=== PATIENT | female | born 1950 | race Asian ===

== ENCOUNTER 2018-01-24 10:25 | Emergency (ER) | payer OTHER, BC ==
[~2018-01-24] VITALS: Ht 157.5 cm; Wt 55.0 kg
[~2018-01-24 10:25] MED LIST: ALEN1TAB48 PO; CALC1TAB12 PO; COLC1TAB7 PO; CYCL5TAB PO
[2018-01-24] MEDS ORDERED: GADODIAMIDE PF 287 MG/ML 5 ML VIAL (for RAD MRI) IVCONTRAST ONE (10:26)
[2018-01-24 10:39] VITALS: BP 204/86; PULSE 81; RESP 17; TEMP 99; O2SAT 99
[2018-01-24 11:59] LABS: AUTOMATED NEUTROPHIL # 4.6 TH/MM3 (1.8-7.7); BASOPHIL # 0.1 TH/MM3 (0-0.2); BASOPHIL % 0.9 % (0.0-2.0); EOSINOPHIL # 0.1 TH/MM3 (0-0.4); EOSINOPHIL % 0.8 % (0.0-4.0); HEMATOCRIT 29.5 % (35.0-46.0); HEMOGLOBIN 8.7 GM/DL (11.6-15.3); LYMPH % 26.4 % (9.0-44.0); LYMPHOCYTE # 1.9 TH/MM3 (1.0-4.8); MEAN CELL VOLUME 53.3 FL (80.0-100.0); MEAN CORPUSCULAR HEMOGLOBIN 15.8 PG (27.0-34.0); MEAN PLATELET VOLUME 9.2 FL (7.0-11.0); MONO % 6.1 % (0.0-8.0); MONOCYTE # 0.4 TH/MM3 (0-0.9); NEUT % 65.8 % (16.0-70.0); PLATELET COUNT 322 TH/MM3 (150-450); RED BLOOD COUNT 5.53 MIL/MM3 (4.00-5.30); RED CELL DISTRIBUTION WIDTH 22.4 % (11.6-17.2)
[2018-01-24 12:03] LABS: MEAN CORPUSCULAR HGB CONC 29.6 % (32.0-36.0)
[2018-01-24 12:09] LABS: BICARBONATE 25.4 MEQ/L (21.0-32.0); CALCIUM 9.3 MG/DL (8.5-10.1); CREATININE 0.85 MG/DL (0.50-1.00)
[2018-01-24] MEDS ORDERED: LOSA25TA PO (12:15)
[2018-01-24] MEDS ORDERED: SODIUM CHLORIDE 0.9% FLUSH 10 ML FLUSH IVF PRN (12:15)
[2018-01-24] MEDS ORDERED: hydrALAZINE HCL 20 MG/ML VIAL IV PUSH ONE (12:15)
[2018-01-24] MEDS ORDERED: PROCHLORPERAZINE INJ 10 MG/2 ML VIAL IVP ONE (12:15)
[2018-01-24] MEDS ORDERED: ASPI-516 CHEW (12:15)
[2018-01-24] MEDS ORDERED: FOSA70TA PO (12:15)
[2018-01-24] MEDS ORDERED: COLC0.6T PO (12:16)
--- NOTE | 2018-01-24 12:39 | PD ---
HPI Chief Complaint: Neuro Symptoms/ Deficits Time Seen by Provider: 12:07 Travel History International Travel<30 days: No Contact w/Intl Traveler<30days: No Traveled to known affect area: No History of Present Illness HPI 67-year-old female with a history of gout and thalassemia presents emergency department with concerns of left nare and cheek numbness with tingling that started 1 week ago. Patient states that she saw her primary care physician for this Wednesday who diagnosed her with hypertension and prescribed losartan 25 mg. Patient states that she has never had a history of high blood pressure and is concerned about this. Says she also had an EKG while in the office and was referred to cardiology and to have an MRI done as an outpatient. 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 States that the spinning was constant and had no palliative or provocative factors, no tinnitus. Patient denies blurred vision, fever, chills , nausea, vomiting, diarrhea. Currently she states her headache is 6 out of 10 , nonradiating without palliative or provocative factors. Patient states that she took an Aleve last night and this helped relieve some of her headache. Patient denies tinnitus. She denies any cardiac or pulmonary problems. Says she has a history of gout for which he takes colchicine PRN. Also takes alendronate for osteoporosis. States compliance with medications. Denies trauma. PFSH Past Medical History Anemia: Yes (THALLISAMIA) ?: Not Menopausal: Yes Social History Alcohol Use: No Tobacco Use: No Substance Use: No Allergies-Medications (Allergen,Severity, Reaction): Coded Allergies: No Known Allergies (Verified Adverse Reaction, Unknown, 01/24/18) Reported Meds & Prescriptions Reported Meds & Active Scripts Active Calcium 500 +D (Calcium Carbonate-Cholecalciferol) 500-400 Mg-Unit Tab 1 Tab PO BID Reported Colcrys (Colchicine) 0.6 Mg Tab 0.6 Mg PO DAILY Aspirin 81 Mg Chew 81 Mg CHEW DAILY Fosamax (Alendronate Sodium) 70 Mg Tab 70 Mg PO Q7D Losartan (Losartan Potassium) 25 Mg Tab 25 Mg PO DAILY Review of Systems Except as stated in HPI: all other systems reviewed are Neg Physical Exam Narrative GENERAL: WD, WN in NAD SKIN: Focused skin assessment warm/dry. No rashes or lesions HEAD: Atraumatic. Normocephalic. EYES: Pupils equal and round. No scleral icterus. No injection or drainage. ENT: No nasal bleeding or discharge. Mucous membranes pink and moist. NECK: Trachea midline. No JVD. No lymphadenopathy, no midline tenderness CARDIOVASCULAR: Regular rate and rhythm. No murmur appreciated. RESPIRATORY: No accessory muscle use. Clear to auscultation. Breath sounds equal bilaterally. GASTROINTESTINAL: Abdomen soft, non-tender, nondistended. no CVAT MUSCULOSKELETAL: No obvious deformities. No clubbing. No cyanosis. No edema. NEUROLOGICAL: Awake and alert. No obvious cranial nerve deficits. Motor grossly within normal limits. Normal speech. No facial droop or slurred speech PSYCHIATRIC: Appropriate mood and affect; insight and judgment normal. Data Data Last Documented VS Vital Signs Date Time Temp Pulse Resp B/P (MAP) Pulse Ox O2 Delivery O2 Flow Rate FiO2 01/24/18 15:09 01/24/18 10:39 99.0 81 17 99 Orders Orders Complete Blood Count With Diff (01/24/18 10:43) Basic Metabolic Panel (Bmp) (01/24/18 10:43) Prothrombin Time / Inr (Pt) (01/24/18 12:15) Act Partial Throm Time (Ptt) (01/24/18 12:15) Prochlorperazine Inj (Compazine Inj) (01/24/18 12:15) Magnesium (Mg) (01/24/18 12:15) Urinalysis - C+S If Indicated (01/24/18 12:15) Chest, Single Ap (01/24/18 12:15) Ecg Monitoring (01/24/18 12:15) Iv Access Insert/Monitor (01/24/18 12:15) Oximetry (01/24/18 12:15) Sodium Chloride 0.9% Flush (Ns Flush) (01/24/18 12:15) Hydralazine Inj (Apresoline Inj) (01/24/18 12:15) Mri Brain W&W/O Contrast (01/24/18 ) Gadodiamide Pf Inj (Omniscan Pf Inj) (01/24/18 10:26) Electrocardiogram (01/24/18 12:13) Ed Discharge Order (01/24/18 14:56) Labs Laboratory Tests Test 01/24/18 11:15 01/24/18 12:45 01/24/18 13:00 White Blood Count 7.0 TH/MM3 Red Blood Count 5.53 MIL/MM3 Hemoglobin 8.7 GM/DL Hematocrit 29.5 % Mean Corpuscular Volume 53.3 FL Mean Corpuscular Hemoglobin 15.8 PG Mean Corpuscular Hemoglobin Concent 29.6 % Red Cell Distribution Width 22.4 % Platelet Count 322 TH/MM3 Mean Platelet Volume 9.2 FL Neutrophils (%) (Auto) 65.8 % Lymphocytes (%) (Auto) 26.4 % Monocytes (%) (Auto) 6.1 % Eosinophils (%) (Auto) 0.8 % Basophils (%) (Auto) 0.9 % Neutrophils # (Auto) 4.6 TH/MM3 Lymphocytes # (Auto) 1.9 TH/MM3 Monocytes # (Auto) 0.4 TH/MM3 Eosinophils # (Auto) 0.1 TH/MM3 Basophils # (Auto) 0.1 TH/MM3 CBC Comment AUTO DIFF Differential Comment AUTO DIFF CONFIRMED Target Cells 1+ Tear Drop Cells 1+ Ovalocytes 1+ Acanthocytes OCC Keratocytes OCC Blood Urea Nitrogen 11 MG/DL Creatinine 0.85 MG/DL Random Glucose 120 MG/DL Calcium Level 9.3 MG/DL Sodium Level 134 MEQ/L Potassium Level 4.1 MEQ/L Chloride Level 101 MEQ/L Carbon Dioxide Level 25.4 MEQ/L Anion Gap 8 MEQ/L Estimat Glomerular Filtration Rate 67 ML/MIN Prothrombin Time 10.0 SEC Prothromb Time International Ratio 1.0 RATIO Activated Partial Thromboplast Time 25.2 SEC Magnesium Level 2.5 MG/DL Urine Color LIGHT-YELLOW Urine Turbidity CLEAR Urine pH 7.5 Urine Specific [place] 1.004 Urine Protein NEG mg/dL Urine Glucose (UA) NEG mg/dL Urine Ketones NEG mg/dL Urine Occult Blood TRACE Urine Nitrite NEG Urine Bilirubin NEG Urine Urobilinogen LESS THAN 2.0 MG/DL Urine Leukocyte Esterase NEG Urine RBC 1 /hpf Urine WBC LESS THAN 1 /hpf Microscopic Urinalysis Comment CULT NOT INDICATED MDM Medical Decision Making Medical Screen Exam Complete: Yes Emergency Medical Condition: Yes Differential Diagnosis Migraine headache, hypertensive urgency,TIA, HTN, ICH Narrative Course 67-year-old female with a history of gout presents emergency department with concerns of left nare and left cheek numbness that started approximately 1 week ago. Patient states that she saw her primary care physician Wednesday where she was diagnosed with hypertension and advised to see cardiology for an unknown reason. She was also advised to obtain an outpatient brain MRI. She comes in today because she was working when she developed a spinning sensation while at work without associated increased numbness or tingling, tinnitus, blurred vision , nausea or vomiting. States that the spinning sensation was constant without any alleviating or provocative factors. She takes BASA QD. Vital signs demonstrate hypertension at 204/86, heart rate 81, SaO2 99% on room air. Physical exam findings unremarkable. Pt ambulated to room without difficulty or ataxic gait. No pronator drift, no facial droop, no slurred speech, grade 5 out of 5 strength upper and lower extremities Hydralazine ordered for blood pressure. Compazine cancelled as this medication did not arrive until patient's discharge. Labs show chronic anemia H&H 8.7/29.5 (pt states this is her normal), sodium 134 , BUN/creatinine 11/0.85. MRI ordered. Last Impressions Chest X-Ray 01/24/18 1215 Signed Impressions: Service Date/Time: Wednesday, January 24, 2018 12:40 - CONCLUSION: No acute disease. Brian Hu MD Brain MRI 01/24/18 0000 Signed Impressions: Service Date/Time: Wednesday, January 24, 2018 13:20 - CONCLUSION: No acute intracranial abnormality is identified. Laron Issa MD I explained today's findings to the patient. Explained that she may have cervical spine osteoarthritis which may be contributing to her headache but there is no emergent process going on today. Patient states that she will return to her primary care physician for evaluation of her high blood pressure. She appreciates the evaluation and treatment that she has been given today. Advised that she can use Tylenol or Motrin per package instructions for her headache. Note that Compazine was not available for administration until at patient's discharge and she did not want to stay any longer. Patient states understanding will comply with the above instructions. Advised to return for worsening or persistent symptoms. Diagnosis Primary Impression: Accelerated hypertension Additional Impression: Headache Qualified Codes: R51 - Headache Referrals: Primary Care Physician Additional Instructions: Follow-up with your primary care physician within 2-3 days. I recommend following up for your blood pressure as well as this was very elevated today. Disposition: 01 DISCHARGE HOME Condition: Stable Katie Garcia Jan 24, 2018 12:39
[2018-01-24 12:46] LABS: ACANTHOCYTES OCC (NORMAL); KERATOCYTES OCC (NORMAL); OVALOCYTES 1+ (NORMAL); TARGET CELLS 1+ (NORMAL); TEARDROP RBCS 1+ (NORMAL)
--- NOTE | 2018-01-24 12:49 | RADRPT ---
EXAM DATE/TIME: 01/24/2018 12:40 [facility] COMPARISON: No previous studies available for comparison. INDICATIONS : Syncope. MEDICAL HISTORY : None. SURGICAL HISTORY : None. ENCOUNTER: Initial ACUITY: 2 days PAIN SCORE: 0/10 LOCATION: Bilateral chest FINDINGS: A single view of the chest demonstrates the lungs to be symmetrically aerated without evidence of mas s, infiltrate or effusion. The cardiomediastinal contours are unremarkable. Osseous structures are intact. CONCLUSION: No acute disease. Brian Hu MD on January 24, 2018 at 12:47 Board Certified Radiologist. This report was verified electronically.
[2018-01-24 13:22] VITALS: BP_SYST 148; BP_DIAS 70; BP_DIAS 72
[2018-01-24 13:24] VITALS: BP 148/72
[2018-01-24 13:48] LABS: BILIRUBIN, URINE NEG (NEG); BLOOD, URINE TRACE (NEG); GLUCOSE,URINE NEG (NEG); KETONE, URINE NEG (NEG); NITRITE,URINE NEG (NEG); PH, URINE 7.5 (5.0-8.5); URINE COLOR LIGHT-YELLOW (YELLW/STRAW); URINE LEUKOCYTE ESTERASE NEG (NEG)
--- NOTE | 2018-01-24 14:40 | RADRPT ---
EXAM DATE/TIME: 01/24/2018 13:20 [facility] COMPARISON: No previous studies available for comparison. INDICATIONS : Cephalgia. Left sided headaches with facial numbness. CONTRAST: 11 cc Omniscan (gadodiamide) IV MEDICAL HISTORY : None. SURGICAL HISTORY : None. ENCOUNTER: Subsequent ACUITY: 4-6 days PAIN SCORE: 8/10 LOCATION: Left cranial TECHNIQUE: Multiplanar, multisequence MRI of the brain was performed both prior to and following the administrat ion of paramagnetic contrast. FINDINGS: CEREBRUM: The ventricles are normal for age. No evidence of midline shift, mass lesion, hemorrhage or acute in farction. No extraaxial fluid collections are seen. The pituitary gland and suprasellar cistern are normal in configuration. WHITE MATTER: No significant signal abnormalities are seen in the white matter. POSTERIOR FOSSA: The cerebellum and brainstem are intact. The 4th ventricle is midline. The cerebellopontine angle is unremarkable. The cerebellar tonsils are normal in position. DIFFUSION IMAGING: No focal areas of restricted diffusion are seen. No evidence of acute infarction. EXTRACRANIAL: The visualized portions of the orbits and paranasal sinuses are unremarkable. POST-CONTRAST: No abnormal areas of parenchymal or dural enhancement. No evidence of blood-brain barrier breakdown. CONCLUSION: No acute intracranial abnormality is identified. Laron Issa MD on January 24, 2018 at 14:35 Board Certified Radiologist. This report was verified electronically.
[2018-01-24 15:08] VITALS: BP 128/67
--- NOTE | 2018-01-25 20:28 | EKG ---
Date Performed: 01/24/2018 Time Performed: 12:13:15 PTAGE: 67 years EKG: Sinus rhythm NORMAL ECG Since the PREVIOUS TRACING , no significant change noted DOCTOR: Elva Price Interpretating Date/Time 01/25/2018 20:27:10
== END 2018-01-24 20:06 | disposition home or self-care (01) ==
LOC: NEPC 10:25
DX: I10 Essential (primary) hypertension (principal); R51 Headache; D64.9 Anemia, unspecified; D56.9 Thalassemia, unspecified; M10.9 Gout, unspecified; Z79.82 Long term (current) use of aspirin; Z79.899 Other long term (current) drug therapy
CPT/HCPCS: 70553; 71045; 80048; 81001; 83735; 85025; 85610; 85730; 93005; 96374; 99285; A9579; J0360